=== PATIENT | male | born 2000 | race Caucasian/White ===

== ENCOUNTER 2025-05-22 23:46 | Emergency (ER) | payer MEDICAID ==
[~2025-05-22] VITALS: Ht 175.3 cm; Wt 73.3 kg
[2025-05-22 23:59] VITALS: O2SAT 99
[2025-05-23] MEDS: SODIUM CHLORIDE 0.9% 500 ML IV ONE (00:31)
[2025-05-23] MEDS: ONDANSETRON HCL 4MG/2ML INJ IV ONE (00:31)
[2025-05-23] MEDS: KETOROLAC 15MG/ML VIAL IV ONE (00:31)
[2025-05-23 00:36] VITALS: RESP 17
[2025-05-23 00:55] LABS: BASOPHILS % 0.4 % (0.0-2.0); EOSINOPHILS % 0.9 % (0.0-5.0); HEMATOCRIT. 41.5 % (42.0-52.0); HEMOGLOBIN. 14.3 g/dL (14.0-18.0); LYMPHOCYTES % 21.3 % (20.0-50.0); MEAN PLATELET VOLUME 7.6 fl (7.4-10.4); MONOCYTES % 11.5 % (2.0-8.0); NEUTROPHILS % 65.9 % (40.0-76.0); PLATELET 285 x1000/uL (130-400); RED BLOOD CELL COUNT 4.84 mill/uL (4.7-6.1); RED CELL DISTRIBUTION WIDTH 12.8 % (11.6-14.6)
[2025-05-23 01:03] LABS: CREATININE 1.4 mg/dL (0.6-1.3); UREA NITROGEN BLOOD 17 mg/dL (9-23)
[2025-05-23] MEDS: TAMSULOSIN HCL 0.4MG SR CAPSULE PO NR (03:57)
[2025-05-23 05:48] VITALS: BP 124/69; PULSE 74; TEMP 36.7; O2SAT 100
[2025-05-23] MEDS ORDERED: IBUP-2029 MT (05:50)
[2025-05-23] MEDS ORDERED: ONDA4TAB50 MT (05:50)
[2025-05-23] MEDS ORDERED: TAMS-54 MT (05:50)
[2025-05-23] MEDS ORDERED: CEPH500C2 MT (05:50)
== END 2025-05-23 05:59 | disposition home or self-care (01) ==
LOC: ER 23:46
DX: N13.2 Hydronephrosis with renal and ureteral calculous obstruction (principal); I10 Essential (primary) hypertension; Z00.00 Encounter for general adult medical examination without abnormal findings; Z79.899 Other long term (current) drug therapy; Z98.890 Other specified postprocedural states; Z86.59 Personal history of other mental and behavioral disorders
CPT/HCPCS: 99285; 80048; 85025; 36415; 74176; 96361; 96374; 96375; J1885; J2405; J7040; Z7610 ×3